=== PATIENT | male | born 1955 | race Caucasian/White ===

== ENCOUNTER 2016-11-19 12:16 | Observation (INO) | payer OTHER ==
--- NOTE | 2016-11-19 12:35 | ER Document Report ---
ED Medical Screen (RME) - General Chief Complaint: Chest Pain Stated Complaint: CHEST PAIN Time Seen by Provider: 11/19/16 12:32 Mode of Arrival: Wheelchair Information source: Patient, Relative TRAVEL OUTSIDE OF THE [place] IN LAST 30 DAYS: No - HPI Patient complains to provider of: CP Onset: Other - Pt with cardiac hx and stents times 4 with intermittent CP for the past 2 weeks with exacerbation this am. Has taken ASA today - Related Data Allergies/Adverse Reactions: codeine [Codeine] Allergy (Verified 11/19/16 12:25) morphine [Morphine] Allergy (Verified 11/19/16 12:25) Sulfa (Sulfonamide Antibiotics) Allergy (Verified 11/19/16 12:25) cholesterol medications Allergy (Uncoded 11/19/16 12:33) Past Medical History - Social History Frequency of alcohol use: None Drug Abuse: None - Past Medical History Cardiac Medical History: Reports: Hx Coronary Artery Disease, Hx Heart Attack - Mild heart attack 2008, 4 STENTS, Hx Hypertension Pulmonary Medical History: Reports: Hx Bronchitis Denies: Hx Asthma, Hx COPD, Hx Pneumonia Neurological Medical History: Denies: Hx Cerebrovascular Accident, Hx Seizures Endocrine Medical History: Reports: Hx Diabetes Mellitus Type 2 Renal/ Medical History: Denies: Hx Peritoneal Dialysis GI Medical History: Reports: Hx Gastroesophageal Reflux Disease - & BARRETTS ESPOPHAGITIS Musculoskeltal Medical History: Reports Hx Arthritis - All over Past Surgical History: Reports: Hx Cardiac Catheterization, Hx Cardiac Surgery - Immunizations Hx Diphtheria, Pertussis, Tetanus Vaccination: Yes Physical Exam - Vital signs Vitals: Temp Pulse Resp BP Pulse Ox 98.2 F 78 18 138/84 H 93 11/19/16 12:24 11/19/16 12:24 11/19/16 12:24 11/19/16 12:24 11/19/16 12:24 Course - Vital Signs Vital signs: Temp Pulse Resp BP Pulse Ox 98.2 F 78 18 138/84 H 93 11/19/16 12:24 11/19/16 12:24 11/19/16 12:24 11/19/16 12:24 11/19/16 12:24
[2016-11-19 13:32] LABS: ABSOLUTE EOSINOPHILS # (AUTO) 0.3 10^3/uL (0.0-0.6); ABSOLUTE LYMPHOCYTES (AUTO) 2.1 10^3/uL (0.5-4.7); ABSOLUTE MONOCYTES (AUTO) 0.9 10^3/uL (0.1-1.4); ABSOLUTE NEUT (AUTO) 6.6 10^3/uL (1.7-8.2); BASOPHILS % (AUTO) 0.4 % (0-2); EOSINOPHILS % (AUTO) 3.4 % (0-6); HEMATOCRIT 36.9 % (37.9-51.0); HEMOGLOBIN 12.7 g/dL (13.5-17.0); HGB HCT DIFFERENCE 1.2; LYMPHOCYTES % (AUTO) 20.7 % (13-45); MEAN CORPUSCULAR HEMOGLOBIN 29.6 pg (27.0-33.4); MEAN CORPUSCULAR HGB CONC 34.3 g/dL (32.0-36.0); MEAN CORPUSCULAR VOLUME 86 fl (80-97); MONOCYTES % (AUTO) 9.4 % (3-13); RED BLOOD COUNT 4.27 10^6/uL (4.35-5.55); RED CELL DISTRIBUTION WIDTH 13.4 % (11.5-14.0); SEGMENTED NEUTROPHILS % (AUTO) 66.1 % (42-78); WHITE BLOOD COUNT 9.9 10^3/uL (4.0-10.5)
[2016-11-19 13:47] LABS: ALANINE AMINOTRANSFERASE 34 U/L (21-72); ALBUMIN 4.1 g/dL (3.5-5.0); ALKALINE PHOSPHATASE 70 U/L (38-126); ANION GAP 7 (5-19); ASPARTATE AMINO TRANSFERASE 22 U/L (17-59); BILIRUBIN,DIRECT 0.4 mg/dL (0.0-0.4); BILIRUBIN,TOTAL 0.4 mg/dL (0.2-1.3); BLOOD UREA NITROGEN 23 mg/dL (7-20); CALCIUM 10.2 mg/dL (8.4-10.2); CARBON DIOXIDE 31 mmol/L (22-30); CHLORIDE 102 mmol/L (98-107); CREATINE KINASE 25 U/L (55-170); GLUCOSE 91 mg/dL (75-110); SODIUM 140.2 mmol/L (137-145); TOTAL PROTEIN 6.6 g/dL (6.3-8.2)
[2016-11-19 13:59] LABS: CREATINE KINASE MB 0.25 ng/mL (<4.55)
[2016-11-19 14:00] LABS: TROPONIN I < 0.012 ng/mL
--- NOTE | 2016-11-19 14:27 | RADIOLOGY REPORT (SQ) ---
EXAM DESCRIPTION: CHEST PA/LAT COMPLETED DATE/TIME: 11/19/2016 1:25 pm REASON FOR STUDY: CP COMPARISON: Chest films 12/19/2015, 12/05/2013 EXAM PARAMETERS: NUMBER OF VIEWS: two views TECHNIQUE: Digital Frontal and Lateral radiographic views of the chest acquired. RADIATION DOSE: NA LIMITATIONS: none FINDINGS: LUNGS AND PLEURA: Bandlike atelectasis or scarring left lung base. Lungs otherwise well i nflated and clear. No pleural effusion. No pneumothorax. MEDIASTINUM AND HILAR STRUCTURES: Calcified bilateral hilar lymph nodes. Fullness right paratracheal region stable compared to 2013 likely due to tortuous brachiocephalic vessels. HEART AND VASCULAR STRUCTURES: Stable mild cardiomegaly BONES: No acute findings. HARDWARE: None in the chest. OTHER: No other significant finding. IMPRESSION: Minimal left basilar atelectasis. TECHNICAL DOCUMENTATION: JOB ID: [id number] [employer]- All Rights Reserved
--- NOTE | 2016-11-19 14:40 | ER Document Report ---
ED Cardiac - General Chief Complaint: Chest Pain Stated Complaint: CHEST PAIN Time Seen by Provider: 11/19/16 12:32 Mode of Arrival: Wheelchair Notes: 61-year-old male with history of coronary artery disease with stent placement 2008 presents with chest discomfort. This is his third episode that he has had in the last 2 weeks with the last one being approximately 4 days ago until this morning. With this he is awakened in the nut sheller with sharp pain diffusely across his chest extending to the upper abdomen. It radiates to both arms. He had some apparent shortness of breath reported to staff but he tells me he was not short of breath. He has had no recent stress testing. He is diabetic and has obstructive sleep apnea but could not tolerate a CPAP. He denies other associated symptoms, nausea, syncope. Each episode has occurred in the late night/nut sheller. He has taken a baby aspirin today as he does daily but no other antiplatelet therapy. He has no current symptoms. TRAVEL OUTSIDE OF THE [place] IN LAST 30 DAYS: No - Related Data Allergies/Adverse Reactions: codeine [Codeine] Allergy (Verified 11/19/16 12:25) morphine [Morphine] Allergy (Verified 11/19/16 12:25) Sulfa (Sulfonamide Antibiotics) Allergy (Verified 11/19/16 12:25) cholesterol medications Allergy (Uncoded 11/19/16 12:33) Past Medical History - General Information source: Patient, Relative - Social History Smoking Status: Former Smoker Frequency of alcohol use: None Drug Abuse: None Family History: Reviewed & Not Pertinent - Past Medical History Cardiac Medical History: Reports: Hx Coronary Artery Disease, Hx Heart Attack - Mild heart attack 2008, 4 STENTS, Hx Hypertension Pulmonary Medical History: Reports: Hx Bronchitis Denies: Hx Asthma, Hx COPD, Hx Pneumonia Neurological Medical History: Denies: Hx Cerebrovascular Accident, Hx Seizures Endocrine Medical History: Reports: Hx Diabetes Mellitus Type 2 Renal/ Medical History: Denies: Hx Peritoneal Dialysis GI Medical History: Reports: Hx Gastroesophageal Reflux Disease - & BARRETTS ESPOPHAGITIS Musculoskeltal Medical History: Reports Hx Arthritis - All over Past Surgical History: Reports: Hx Cardiac Catheterization, Hx Cardiac Surgery - Immunizations Hx Diphtheria, Pertussis, Tetanus Vaccination: Yes Review of Systems - Review of Systems -: Yes All other systems reviewed and negative Physical Exam - Vital signs Vitals: Temp Pulse Resp BP Pulse Ox 98.2 F 78 18 138/84 H 93 11/19/16 12:24 11/19/16 12:24 11/19/16 12:24 11/19/16 12:24 11/19/16 12:24 - Notes Notes: Physical Exam: GENERAL: VS as per nursing doc. Well-appearing, well-nourished and in no acute distress. HEAD: Atraumatic, normocephalic. EYES: Pupils equal round and reactive to light, extraocular movements intact, sclera anicteric, no conjunctival injection or discharge. ENT: Nares patent, oropharynx clear without exudates. Moist mucous membranes. NECK: Normal range of motion, supple without lymphadenopathy. No JVD. No Carotid Bruits. LUNGS: Breath sounds clear to auscultation bilaterally and equal but diminished bilaterally. No wheezes rales or rhonchi. HEART: Normal S1S2. Regular rate and rhythm without murmurs. Equal peripheral pulses. ABDOMEN: Soft, non-tender EXTREMITIES: Normal range of motion. No calf tenderness. Negative Homans. No edema. NEUROLOGICAL: Cranial nerves grossly intact. Normal speech. Normal sensory and motor exams. No gross cerebellar abnormalities. PSYCH: Normal mood, normal affect. SKIN: Warm, dry, no cyanosis, no splinter hemorrhages. Cap refill < 2 sec. Course - Re-evaluation Re-evalutation: 11/19/16 14:53 I suspect the patient is desaturating with sleep apnea and having ischemic episodes in the late night/[place] morning hours. Dr. Ruvalcaba will admit the patient. - Vital Signs Vital signs: Temp Pulse Resp BP Pulse Ox 98.2 F 78 19 121/79 94 11/19/16 12:24 11/19/16 12:24 11/19/16 13:31 11/19/16 13:31 11/19/16 13:31 - Laboratory Result Diagrams: 11/19/16 13:15 11/19/16 13:15 Laboratory results interpreted by me: 11/19/16 11/19/16 13:15 13:15 RBC 4.27 L Hgb 12.7 L Hct 36.9 L Carbon Dioxide 31 H BUN 23 H Creatine Kinase 25 L - Diagnostic Test Radiology reviewed: Image reviewed, Reports reviewed - Mild left basilar atelectasis - EKG Interpretation by Me EKG shows normal: Sinus rhythm - Normal sinus rhythm, rate 83, no evidence of ischemia. Normal QRS. EKG similar and consistent with December 19, 2015 - Consults Dr. Ruvalcaba Time consulted: 14:54 - Tele/Obs admit Consulted provider: will come to ER Discharge - Discharge Clinical Impression: Chest pain Condition: Fair Disposition: ADMITTED OBSERVATION Admitting Provider: Hospitalist Unit Admitted: Telemetry
[2016-11-19] MEDS ORDERED: ASPIRIN 81 MG TABLET, CHEWABLE PO ONE ×2 (14:55→15:01)
[2016-11-19] MEDS ORDERED: ONDANSETRON HCL INJ/PF 4 MG/2 ML SDV IV PRN (15:01)
[2016-11-19] MEDS ORDERED: DIAZEPAM 5 MG TABLET PO PRN (15:01)
[2016-11-19] MEDS ORDERED: NITROGLYCERIN 0.4 MG/TAB 25 TAB/BOTTLE SL PRN (15:01)
[2016-11-19] MEDS ORDERED: NORMAL SALINE 1000 ML 1,000 ML IV PRN (15:06)
[2016-11-19] MEDS ORDERED: INSULIN LISPRO 100 UNIT/ML 3 ML VIAL SUBCUT PRN (16:15)
[2016-11-19] MEDS ORDERED: GLUCAGON,HUMAN RECOMB 1 MG INJ IM PRN (16:15)
[2016-11-19] MEDS ORDERED: DEXTROSE 50%-WATER 25 GM/50 ML DISP.SYRIN IV PRN ×2 (16:15)
[2016-11-19] MEDS ORDERED: DEXTROSE 40% GEL 15 GM TUBE PO PRN ×2 (16:15)
--- NOTE | 2016-11-19 16:30 | PDOC H&P ---
History of Present Illness Admission Date/PCP: 11/19/16 15:24 Dr. Mario Denture Contour Wire Specialist: Dr. GAN History of Present Illness: HOWIE BAZAN is a 61 year old male with a past medical history significant for diabetes mellitus type 2, obstructive sleep apnea noncompliant with CPAP, coronary artery disease, Ag's esophagus, and GERD who presents to the emergency department with 2 weeks of episodic chest pain. Patient reports that approximately 2 weeks ago he had an episode of chest pressure which woke him from sleep. And a second episode after that this past Thursday morning associated with chest discomfort. Patient reports having several episodes during the week while drinking coffee. He took nitroglycerin which did improve his pain somewhat, but was left with a dull ache. He reports that this morning he had several episodes while sleeping and reports that the heaviness radiated into his bilateral arms and jaw. He denies any associated shortness of breath, nausea, vomiting, metallic taste in his mouth, or diaphoresis. Patient does note an increased cough as of late which is nonproductive and denies hemoptysis. He denies any fevers or chills. He does note increased dyspnea on exertion, orthopnea, abdominal distention/swelling, and scrotal swelling. Patient has not had a stress test since 2013 at which time he had his last cath. He at that time he had 2 stents placed. Patient has already received 325 mg aspirin, and is currently chest pain-free. He is referred to the hospitalist service for evaluation of chest pain. Past Medical History Cardiac Medical History: Reports: Coronary Artery Disease, Myocardial Infarction - Mild heart attack 2008, 4 STENTS, Hypertension Pulmonary Medical History: Reports: Bronchitis, Sleep Apnea Denies: Asthma, Chronic Obstructive Pulmonary Disease (COPD), Pneumonia Neurological Medical History: Reports: Other - Neuropathy Denies: Seizures Endocrine Medical History: Reports: Diabetes Mellitus Type 2, Obesity GI Medical History: Reports: Gastroesophageal Reflux Disease - & BARRETTS ESPOPHAGITIS Musculoskeltal Medical History: Reports: Arthritis - All over Hematology: Denies: Anemia Infectious Medical History: Reports: Methicillin-Resistant Staph Aureus Past Surgical History Past Surgical History: Reports: Cardiac Catheterization, Cholecystectomy Social History Smoking Status: Former Smoker Frequency of Alcohol Use: None Hx Recreational Drug Use: No Hx Prescription Drug Abuse: No - Advance Directive Resuscitation Status: Full Code Surrogate healthcare decision maker:: Carlee Bazan, Family History Family History: CAD, Hypertension Parental Family History Reviewed: Yes Children Family History Reviewed: Yes Sibling(s) Family History Reviewed.: Yes Medication/Allergy Home Medications: Aspirin [Aspirin 81 mg Chewable Tablet] 81 mg PO DAILY 12/05/13 Donepezil HCl [Aricept Odt] 5 mg PO QHS 12/05/13 Esomeprazole Magnesium [Nexium] 40 mg PO BID 12/05/13 Metformin HCl [Glucophage 500 mg Tablet] 500 mg PO DAILY 12/05/13 Metoprolol Tartrate [Lopressor 50 mg Tablet] 25 mg PO DAILY 12/05/13 Nitroglycerin 0.4 mg SL PRN PRN 12/05/13 Telmisartan/Hydrochlorothiazid [Micardis HCT 80-25 mg Tablet] 1 each PO DAILY Allergies/Adverse Reactions: codeine [Codeine] Allergy (Verified 11/19/16 12:25) morphine [Morphine] Allergy (Verified 11/19/16 12:25) Sulfa (Sulfonamide Antibiotics) Allergy (Verified 11/19/16 12:25) cholesterol medications Allergy (Uncoded 11/19/16 12:33) Review of Systems Constitutional: PRESENT: fatigue, weight gain. ABSENT: chills, fever(s), headache(s), weight loss Eyes: ABSENT: visual disturbances Ears: ABSENT: hearing changes Cardiovascular: PRESENT: chest pain, dyspnea on exertion, edema, orthropnea. ABSENT: palpitations Respiratory: PRESENT: cough, dyspnea. ABSENT: hemoptysis, sputum Gastrointestinal: PRESENT: abdominal pain - Chronic, constipation, heartburn. ABSENT: diarrhea, hematemesis, hematochezia, melena, nausea, vomiting Genitourinary: ABSENT: difficulty urinating, dysuria, hematuria, nocturia Musculoskeletal: ABSENT: joint swelling Integumentary: ABSENT: diaphoresis, erythema, rash, wounds Neurological: ABSENT: abnormal gait, abnormal speech, confusion, dizziness, focal weakness, syncope Psychiatric: ABSENT: anxiety, depression, homidical ideation, suicidal ideation Endocrine: PRESENT: polydipsia. ABSENT: cold intolerance, heat intolerance, polyuria Hematologic/Lymphatic: ABSENT: easy bleeding, easy bruising Physical Exam Vital Signs: Temp Pulse Resp BP Pulse Ox 98.2 F 78 18 127/67 H 95 11/19/16 12:24 11/19/16 12:24 11/19/16 15:01 11/19/16 15:01 11/19/16 15:01 General appearance: PRESENT: no acute distress, morbidly obese, well-developed, well-nourished Head exam: PRESENT: atraumatic, normocephalic Eye exam: PRESENT: conjunctiva pink, EOMI, PERRLA. ABSENT: conjunctival injection, scleral icterus Ear exam: PRESENT: normal external ear exam Mouth exam: PRESENT: moist, neck supple, tongue midline Neck exam: ABSENT: JVD, lymphadenopathy, thyromegaly, tracheal deviation Respiratory exam: PRESENT: crackles - Bilateral bibasilar, prolonged expiratory phas, symmetrical, tachypnea, unlabored. ABSENT: accessory muscle use, chest wall tenderness, rales, retraction, rhonchi, wheezes Cardiovascular exam: PRESENT: RRR, +S1, +S2, systolic murmur. ABSENT: diastolic murmur, gallop, rubs, tachycardia Pulses: PRESENT: +1 pedal pulses bilateral Vascular exam: PRESENT: normal capillary refill GI/Abdominal exam: PRESENT: hypoactive bowel sounds, soft, tenderness - ruq. ABSENT: distended, firm, guarding, mass, Gonzalez's sign, organolmegaly, rebound, rigid Rectal exam: PRESENT: deferred Extremities exam: PRESENT: clubbing, pedal edema. ABSENT: calf tenderness Musculoskeletal exam: ABSENT: deformity Neurological exam: PRESENT: alert, awake, oriented to person, oriented to place , oriented to time, oriented to situation, CN II-XII grossly intact. ABSENT: motor sensory deficit Psychiatric exam: PRESENT: appropriate affect, normal mood. ABSENT: homicidal ideation, suicidal ideation Skin exam: PRESENT: dry, intact, warm. ABSENT: cyanosis, rash Results Laboratory Results: 08/23/12 11/19/16 11/19/16 15:15 13:15 13:15 WBC 9.9 Hgb 12.7 L Hct 36.9 L Plt Count 304 Seg Neutrophils % 66.1 D-Dimer 0.39 Sodium 140.2 Potassium 5.0 Carbon Dioxide 31 H BUN 23 H Creatinine 1.00 Glucose 91 Calcium 10.2 Total Bilirubin 0.4 Direct Bilirubin 0.4 AST 22 ALT 34 Alkaline Phosphatase 70 Creatine Kinase 25 L CK-MB (CK-2) Troponin I Total Protein 6.6 Albumin 4.1 11/19/16 13:15 WBC Hgb Hct Plt Count Seg Neutrophils % D-Dimer Sodium Potassium Carbon Dioxide BUN Creatinine Glucose Calcium Total Bilirubin Direct Bilirubin AST ALT Alkaline Phosphatase Creatine Kinase CK-MB (CK-2) 0.25 Troponin I < 0.012 Total Protein Albumin 11/23/10 02:38 Gram Stain - Final Axilla - Left Side Abscess Wound Culture - Final Mrsa (Meth Resis Staph Aureus) EKG Comments: NSR, LAFB, low voltage Impressions: Chest X-Ray 11/19/16 12:33 IMPRESSION: Minimal left basilar atelectasis. Status: Imported from PACS Assessment & Plan - Diagnosis (1) Chest pain Qualifiers: Chest pain type: precordial pain Qualified Code(s): R07.2 - Precordial pain Is this a current diagnosis for this admission?: Yes Plan: Place patient on observation and rule out for acute coronary syndrome. Will consider the addition of a long-acting nitrate, patient does give symptomatology consistent with congestive heart failure and will obtain an echocardiogram as well as a stress test. Continue patient's Micardis, metoprolol, aspirin. Patient has had a history of recent cardiac catheterization in 2013 which does reveal a significant amount of small vessel disease and patient's chest pain may actually be a manifestation of angina. Check FLP and cardiac enzymes. Patient reports an allergy to statins. (2) DM type 2 (diabetes mellitus, type 2) Qualifiers: Diabetes mellitus complication status: with neurologic complications Diabetes mellitus complication detail: with polyneuropathy Diabetes mellitus equipment operator intermodal yard insulin use: without equipment operator intermodal yard use Qualified Code(s): E11.42 - Type 2 diabetes mellitus with diabetic polyneuropathy Is this a current diagnosis for this admission?: Yes Plan: Check [id number] Carb controlled diet SSI (3) DESEAN (obstructive sleep apnea) Is this a current diagnosis for this admission?: Yes Plan: Encourage wt loss (4) Barretts esophagus Qualifiers: Ag's esophagus type: with dysplasia of unspecified degree Qualified Code(s): K22.719 - Ag's esophagus with dysplasia, unspecified; K22.71 - Ag's esophagus with dysplasia Is this a current diagnosis for this admission?: Yes Plan: Continue PPI twice daily (5) GERD (gastroesophageal reflux disease) Qualifiers: Esophagitis presence: esophagitis presence not specified Qualified Code(s) : K21.9 - Gastro-esophageal reflux disease without esophagitis Is this a current diagnosis for this admission?: Yes Plan: PPI twice daily (6) HTN (hypertension) Qualifiers: Hypertension type: essential hypertension Qualified Code(s): I10 - Essential (primary) hypertension Is this a current diagnosis for this admission?: Yes Plan: Continue Micardis, metoprolol (7) Morbid obesity due to excess calories Is this a current diagnosis for this admission?: Yes Plan: Dietary consult - Time Time Spent: 50 to 70 Minutes Medications reviewed and adjusted accordingly: Yes Anticipated discharge: Home Within: within 48 hours - Inpatient Certification Based on my medical assessment, after consideration of the patient's comorbidities, presenting symptoms, or acuity I expect that the services needed warrant INPATIENT care.: No I certify that my determination is in accordance with my understanding of Medicare's requirements for reasonable and necessary INPATIENT services [42 CFR 412.3e].: No Post Hospital Care: D/C Rental Salesperson Documentation
[2016-11-19] MEDS: LANSOPRAZOLE 30 MG TAB.RAP.DR PO SCH (16:56)
[2016-11-19] MEDS ORDERED: ACETAMINOPHEN 325 MG TABLET PO PRN (17:05)
[2016-11-19] MEDS ORDERED: FUROSEMIDE INJ/PF 20 MG/2 ML SDV IV ONE (18:00)
[2016-11-19] MEDS ORDERED: IPRATROPIUM/ALBUTEROL 0.5-2.5 MG/3 ML AMPUL NEB ONE (18:00)
[2016-11-19] MEDS ORDERED: MAG HYDROX/AL HYDROX/SIMETH SUSP 30 ML UDCUP PO ONE (18:00)
[2016-11-19] MEDS ORDERED: LIDOCAINE 2% VISCOUS SOLN 20 ML UDCUP PO ONE (18:00)
[2016-11-19] MEDS ORDERED: GABAPENTIN 300 MG CAPSULE PO SCH (18:00)
[2016-11-19] MEDS ORDERED: NITROGLYCERIN 2% OINTMENT 1 GM PACKET TP ONE (18:00)
[2016-11-19] MEDS ORDERED: METOCLOPRAMIDE HCL ORAL SOLN 10 MG/10 ML UDCUP PO ONE (18:00)
[2016-11-19] MEDS: METFORMIN HCL 500 MG TABLET PO SCH (18:11)
[2016-11-19] MEDS: IPRATROPIUM/ALBUTEROL 0.5-2.5 MG/3 ML AMPUL NEB SCH (20:23)
[2016-11-19] MEDS ORDERED: AMITRIPTYLINE HCL 75 MG TABLET PO SCH (22:00)
[2016-11-19] MEDS: GABAPENTIN 300 MG CAPSULE PO SCH (22:23)
[2016-11-19] MEDS: LOSARTAN POTASSIUM 25 MG TABLET PO SCH (22:28)
[2016-11-19] MEDS: METOPROLOL SUCCINATE 50 MG TAB.SR.24H PO SCH ×2 (22:28→22:44)
--- NOTE | 2016-11-19 22:53 | EKG REPORT ---
SEVERITY:- NORMAL ECG - SINUS RHYTHM : Confirmed by: Сергей Mendosa 19-Nov-2016 22:51:59
[2016-11-20 03:36] LABS: CHOLESTEROL 201.34 mg/dL (0-200); CREATINE KINASE 26 U/L (55-170); Direct HDL 35 mg/dL (>40); TRIGLYCERIDES 218 mg/dL (<150)
[2016-11-20 03:46] LABS: VLDL CHOLESTEROL 43.6 mg/dL (10-31)
[2016-11-20 03:47] LABS: DIRECT LDL 131 mg/dL (<100)
[2016-11-20 04:04] LABS: CREATINE KINASE MB < 0.22 ng/mL (<4.55); TROPONIN I < 0.012 ng/mL
[2016-11-20] MEDS: GABAPENTIN 300 MG CAPSULE PO SCH ×2 (05:08→13:03)
[2016-11-20] MEDS: LANSOPRAZOLE 30 MG TAB.RAP.DR PO SCH ×2 (05:08→16:05)
[2016-11-20] MEDS: IPRATROPIUM/ALBUTEROL 0.5-2.5 MG/3 ML AMPUL NEB SCH ×2 (08:40→13:55)
[2016-11-20] MEDS ORDERED: ASPIRIN 325 MG TABLET, ENT COATED PO SCH (10:00)
[2016-11-20] MEDS: METFORMIN HCL 500 MG TABLET PO SCH (12:41)
[2016-11-20] MEDS: LOSARTAN POTASSIUM 25 MG TABLET PO SCH (12:46)
[2016-11-20] MEDS ORDERED: REGADENOSON INJ 0.4 MG/5 ML DISP.SYRIN IV ONE (12:53)
[2016-11-20] MEDS ORDERED: AMINOPHYLLINE INJ/PF 250 MG/10 ML SDV IV ONE (12:53)
[2016-11-20] MEDS ORDERED: METOPROLOL SUCCINATE 50 MG TAB.SR.24H PO ONE (13:00)
--- NOTE | 2016-11-20 13:16 | RADIOLOGY REPORT (SQ) ---
EXAM DESCRIPTION: [facility] SPECT-CARDIOLITE COMPLETED DATE/TIME: 11/20/2016 12:40 pm REASON FOR STUDY: CAD, Chest Pressure COMPARISON: Echocardiogram 11/20/2016 Cardiolite study 12/06/2013 RADIONUCLIDE AND DOSE: RADIONUCLIDE REST: 14.16 mCi technetium 99m sestamibi. RADIONUCLIDE STRESS: 42.6 mCi technetium 99m sestamibi. STRESS AGENT: 0.4 mg Lexiscan. The route of agent administration: Intravenous TECHNIQUE: Following administration of the radionuclide, gated ECT images of the heart are obtained in three projections. Images obtained at rest and with stress. Left ventricular functional analysis performed. LIMITATIONS: None. FINDINGS: LEFT VENTRICULAR FUNCTION: EJECTION FRACTION: 54%. END-DIASTOLIC VOLUME: 71 mL. END-SYSTOLIC VOLUME: 33 mL. TID RATIO: 1.0. WALL MOTION: Mildly depressed thickening of the inferior wall left ventricular myocardium. PERFUSION IMAGES: Normal myocardial perfusion at stress and rest. No areas of ischemia. OTHER: No other significant finding. IMPRESSION: No Cardiolite defects on stress as compared to rest. Left ventricular ejection fraction 54%. Stable mild decreased wall thickening, inferior wall COMMENT: RISK ASSESSMENT: Low risk. LOW RISK FINDINGS: Normal or small perfusion defect rest or stress. INTERMEDIATE RISK FINDINGS: Mild/moderate resting LV dysfunction LVEF=35-49%. Stress-induced moderate perfusion defect without LV dilatation. HIGH RISK FINDINGS: Severe resting LV dysfunction LVEF<35%. Stress-induced large perfusion defect. Stress-induced moderate sized multiple perfusion defects. Large fixed perfusion defect with LV dilatation. Stress-induced moderate perfusion defect with LV dilatation. TECHNICAL DOCUMENTATION: JOB ID: [id number] [employer]- All Rights Reserved
[2016-11-20 16:09] VITALS: BP 127/78
--- NOTE | 2016-11-20 20:15 | PDOC DISCHARGE SUMMARY ---
General - Admit/Disc Date/PCP Admission Date/Primary Care Provider: 11/19/16 15:24 Discharge Date: 11/20/16 - Discharge Diagnosis (1) Chest pain Is this a current diagnosis for this admission?: Yes (2) DM type 2 (diabetes mellitus, type 2) Is this a current diagnosis for this admission?: Yes (3) DESEAN (obstructive sleep apnea) Is this a current diagnosis for this admission?: Yes (4) Barretts esophagus Is this a current diagnosis for this admission?: Yes (5) GERD (gastroesophageal reflux disease) Is this a current diagnosis for this admission?: Yes (6) HTN (hypertension) Is this a current diagnosis for this admission?: Yes (7) Morbid obesity due to excess calories Is this a current diagnosis for this admission?: Yes - Additional Information Resuscitation Status: Full Code Discharge Diet: Cardiac, Diabetic Discharge Activity: Activity As Tolerated Home Medications: Amitriptyline HCl [Elavil 75 mg Tablet] 75 mg PO QHS 11/19/16 Aspirin [Aspirin 81 mg Chewable Tablet] 81 mg PO DAILY 11/19/16 Cyanocobalamin (Vitamin B-12) [Vitamin B-12 1000 mcg Tablet] 1,000 mcg PO ASDIR PRN 11/19/16 Gabapentin [Neurontin] 600 mg PO Q8 11/19/16 Metformin HCl [Glucophage 500 mg Tablet] 500 mg PO DAILY 11/19/16 Metoprolol Tartrate [Lopressor 25 mg Tablet] 25 mg PO DAILY 11/19/16 Nitroglycerin [Nitrostat] 0.4 mg SL ASDIR PRN 11/19/16 Telmisartan/Hydrochlorothiazid [Telmisartan-Hctz 80-25 mg Tab] 1 tab PO DAILY Sucralfate [Carafate] 1 gm PO TID #180 ml 11/20/16 History of Present Illness History of Present Illness: HOWIE BAZAN is a 61 year old male with a past medical history significant for diabetes mellitus type 2, obstructive sleep apnea noncompliant with CPAP, coronary artery disease, Ag's esophagus, and GERD who presents to the emergency department with 2 weeks of episodic chest pain. Patient reports that approximately 2 weeks ago he had an episode of chest pressure which woke him from sleep. And a second episode after that this past Thursday morning associated with chest discomfort. Patient reports having several episodes during the week while drinking coffee. He took nitroglycerin which did improve his pain somewhat, but was left with a dull ache. He reports that this morning he had several episodes while sleeping and reports that the heaviness radiated into his bilateral arms and jaw. He denies any associated shortness of breath, nausea, vomiting, metallic taste in his mouth, or diaphoresis. Patient does note an increased cough as of late which is nonproductive and denies hemoptysis. He denies any fevers or chills. He does note increased dyspnea on exertion, orthopnea, abdominal distention/swelling, and scrotal swelling. Patient has not had a stress test since 2013 at which time he had his last cath. He at that time he had 2 stents placed. Patient has already received 325 mg aspirin, and is currently chest pain-free. He is referred to the hospitalist service for evaluation of chest pain. Hospital Course Hospital Course: Patient ruled out for acute coronary syndrome with 3 sets of enzymes. Patient' s chest pain was greatly improved with GI cocktail. Discussion of repeat endoscopy as an outpatient was had with patient. This was expressed to him is extremely important given his history of Ag's esophagitis. Patient also strongly encouraged to eat appropriately and get a moderate amount of exercise. He is also to follow-up with his coal hiker Dr. GAN the results of his echo. Physical Exam Vital Signs: Temp Pulse Resp BP Pulse Ox 97.5 F 105 H 18 127/78 H 93 11/20/16 16:08 11/20/16 16:08 11/20/16 16:08 11/20/16 16:08 11/20/16 16:08 Intake & Output 11/19/16 11/20/16 11/21/16 06:59 06:59 06:59 Intake Total 0 Output Total 1475 Balance -1475 Weight 99.9 kg Exam: General: obese, Awake alert and orientedx3, no acute respiratory distress HEENT: AT/NC, PERRL, EOMI, oropharynx is moist, pink, no scleral icterus, no conjunctival injection Neck: No JVD, trachea midline Chest: Clear to auscultation bilaterally, no wheezes rhonchi or rales CV: Regular rate and rhythm, normal S1 and S2, no murmur, rub, or gallop Abdomen: Soft, nontender to palpation, nondistended, active bowel sounds; no rebound, rigidity, or guarding Extremities: No cyanosis, clubbing or edema Neuro: Cranial nerves II through XII are grossly intact without focal deficits; awake alert and oriented x3 Psych: Normal mood and affect Results Laboratory Results: 11/20/16 03:15 Triglycerides 218 H Cholesterol 201.34 H LDL Cholesterol Direct 131 H VLDL Cholesterol 43.6 H HDL Cholesterol 35 L 11/19/16 11/19/16 11/19/16 15:52 15:52 21:03 Creatine Kinase CK-MB (CK-2) Troponin I < 0.012 < 0.012 NT-Pro-B Natriuret Pep 47 11/20/16 11/20/16 03:15 03:15 Creatine Kinase 26 L CK-MB (CK-2) < 0.22 Troponin I < 0.012 NT-Pro-B Natriuret Pep Impressions: Chest X-Ray 11/19/16 12:33 IMPRESSION: Minimal left basilar atelectasis. Cardiolite Stress Test 11/19/16 15:58 IMPRESSION: No Cardiolite defects on stress as compared to rest. Left ventricular ejection fraction 54%. Stable mild decreased wall thickening, inferior wall Qualifiers PATEINT BEING DISCHARGED WITH ANY OF THE FOLLOWING DIAGNOSIS?: No Plan Time Spent: Less than 30 Minutes
== END 2016-11-20 16:51 | disposition home or self-care (01) ==
LOC: ER 12:16 → EH 15:24 → 4W 16:47
PROVIDERS: ADMIT Internal Medicine; ATTEND Internal Medicine
PROC: 3E0F7GC Introduction of Other Therapeutic Substance into Respiratory Tract, Via Natural or Artificial Opening (ICD-10-PCS; principal; 2016-11-19)
DX: R07.89 Other chest pain (principal); E11.42 Type 2 diabetes mellitus with diabetic polyneuropathy; G47.33 Obstructive sleep apnea (adult) (pediatric); K22.719 Barrett's esophagus with dysplasia, unspecified; K21.9 Gastro-esophageal reflux disease without esophagitis; I10 Essential (primary) hypertension; E66.01 Morbid (severe) obesity due to excess calories; I25.10 Atherosclerotic heart disease of native coronary artery without angina pectoris; R05 Cough; R06.09 Other forms of dyspnea; R06.01 Orthopnea; R14.0 Abdominal distension (gaseous); N50.89 Other specified disorders of the male genital organs; K59.00 Constipation, unspecified; R60.0 Localized edema; I25.2 Old myocardial infarction; G89.29 Other chronic pain; R10.9 Unspecified abdominal pain; Z79.82 Long term (current) use of aspirin; Z95.5 Presence of coronary angioplasty implant and graft; Z91.19 Patient's noncompliance with other medical treatment and regimen; Z79.899 Other long term (current) drug therapy; Z87.891 Personal history of nicotine dependence; Z90.49 Acquired absence of other specified parts of digestive tract; Z82.49 Family history of ischemic heart disease and other diseases of the circulatory system; Z79.84 Long term (current) use of oral hypoglycemic drugs; Z91.09 Other allergy status, other than to drugs and biological substances; Z68.35 Body mass index [BMI] 35.0-35.9, adult
CPT/HCPCS: 93005; 99285; 36415 ×2; 82553 ×2; 82962 ×2; 82550 ×2; 84443; 85025; 80053; 84484 ×2; 83036; 80061; 83880; 93306; 93017; 71020; 78452; 93010; 94640 ×3; G0378 ×2; G0379; A9500; J2785; J3490 ×4; J1940; J0280; J7620 ×2; Q9969

== ENCOUNTER 2016-12-04 09:43 | Day surgery (SDC) | payer OTHER ==
[2016-12-04 10:42] LABS: POTASSIUM 4.9 mmol/L (3.6-5.0)
[2016-12-04] MEDS ORDERED: PROPOFOL INJ 200 MG/20 ML VIAL IV ONE (11:06)
[2016-12-04] MEDS ORDERED: ONDANSETRON HCL INJ/PF 4 MG/2 ML SDV IV PRN (12:33)
[2016-12-04] MEDS ORDERED: DIPHENHYDRAMINE HCL 50 MG/ML VIAL IV PRN (12:33)
[2016-12-04] MEDS ORDERED: FENTANYL CITRATE INJ/PF 100 MCG/2 ML AMPUL IV PRN ×3 (12:33)
[2016-12-04] MEDS ORDERED: PROMETHAZINE HCL INJ 25 MG/1 ML VIAL IV PRN (12:33)
--- NOTE | 2016-12-04 12:54 | Operative Report ---
Operative Report DATE OF SURGERY: 12/04/16 Operative Report: The risks, benefits and alternatives of the procedure including risks of bleeding, perforation requiring surgery are explained to the patient in detail and informed consent is obtained. Patient was taken back to the operating room placed in the left, lateral decubital position. Timeout was called. Propofol medications administered. A rectal examination was done which did not reveal any masses, tears or fissures. An Olympus video scope was inserted into the patient's rectum. The scope was then carefully advanced all the way to the cecum. The cecum was identified by the usual anatomical landmarks of the ileocecal valve as well as the appendiceal office. Photodocumentation was obtained. Prep was good. Scope was then sequentially pulled back via the various segments of the colon including the ascending colon, hepatic flexure, transverse colon, splenic flexure, descending colon finding to the rectosigmoid portions of the colon. Retroflexion maneuvers performed. The risks benefits and alternatives of the procedure explained to the patient in detail and informed consent is obtained.A GIF Olympus video scope was inserted into the patient's mouth and hypopharynx, the esophagus is identified intubated and insufflated, the scope was then advanced through the esophagus stomach and duodenum, retroflexion maneuver is done, the esophagus stomach and first and second portions of the duodenum examined PREOPERATIVE DIAGNOSIS: Prior blood per rectum. Colorectal cancer screening. Noncardiac chest pain POSTOPERATIVE DIAGNOSIS: Possible Ag's esophagus. Esophageal polyp was removed via biopsy forceps. Gastritis status post biopsy. Descending colon polyp status post biopsy. Diverticulosis. Internal hemorrhoids OPERATION: Colonoscopy with biopsy. Colonoscopy with EGD SURGEON: WILLIAM NICHOLS ANESTHESIA: LMAC TISSUE REMOVED OR ALTERED: As noted above. COMPLICATIONS: None. ESTIMATED BLOOD LOSS: None. INTRAOPERATIVE FINDINGS: As described above. PROCEDURE: Patient tolerated the procedure well. No immediate postprocedure complications are noted. Patient discharged in good condition. Discharge date 12/03/2016. Discharge diet: Regular. Discharge activity: Regular. 2-3 week follow-up to discuss findings. Patient is instructed to call the office or proceed to the emergency room should there be any further problems or questions. We will wait on biopsies. 5 year surveillance colonoscopy.
[2016-12-04] MEDS ORDERED: DEXTROSE 5%-1/2 NORMAL SALINE 1,000 ML IV PRN (13:05)
[2016-12-04] MEDS ORDERED: SIMETHICONE 80 MG TAB.CHEW PO PRN (13:06)
[2016-12-04] MEDS ORDERED: ACETAMINOPHEN 325 MG TABLET PO PRN (13:06)
[2016-12-04] MEDS ORDERED: PROMETHAZINE HCL INJ 25 MG/1 ML VIAL INJ PRN (13:07)
[2016-12-04 14:41] VITALS: BP 113/66
== END 2016-12-04 14:33 | disposition home or self-care (01) ==
LOC: OROUT 09:43
PROVIDERS: ATTEND Internal Medicine Gastroenterology
PROC: 0DBM8ZX Excision of Descending Colon, Via Natural or Artificial Opening Endoscopic, Diagnostic (ICD-10-PCS; 2016-12-04)
PROC: 0DB68ZX Excision of Stomach, Via Natural or Artificial Opening Endoscopic, Diagnostic (ICD-10-PCS; principal; 2016-12-04 12:00)
PROC: 0DB58ZX Excision of Esophagus, Via Natural or Artificial Opening Endoscopic, Diagnostic (ICD-10-PCS; 2016-12-04 12:00)
DX: Z86.010 Personal history of colon polyps (principal); D12.4 Benign neoplasm of descending colon; K57.30 Diverticulosis of large intestine without perforation or abscess without bleeding; K64.8 Other hemorrhoids; K29.50 Unspecified chronic gastritis without bleeding; K21.9 Gastro-esophageal reflux disease without esophagitis; E78.2 Mixed hyperlipidemia; E11.9 Type 2 diabetes mellitus without complications; I25.10 Atherosclerotic heart disease of native coronary artery without angina pectoris; M06.9 Rheumatoid arthritis, unspecified; E78.5 Hyperlipidemia, unspecified; I10 Essential (primary) hypertension; Z79.82 Long term (current) use of aspirin; Z79.84 Long term (current) use of oral hypoglycemic drugs; Z79.899 Other long term (current) drug therapy; Z88.5 Allergy status to narcotic agent; Z88.2 Allergy status to sulfonamides
CPT/HCPCS: 43239; 45380; 36415; 82947; 84132; 88342 ×2; 88305 ×2; J2704; 740

== ENCOUNTER → 2017-02-27 | Outpatient (CLI) | payer OTHER ==
[2017-02-27 11:05] LABS: ALANINE AMINOTRANSFERASE 33 U/L (21-72); ALBUMIN 4.4 g/dL (3.5-5.0); ALKALINE PHOSPHATASE 66 U/L (38-126); ANION GAP 11 (5-19); ASPARTATE AMINO TRANSFERASE 24 U/L (17-59); BILIRUBIN,DIRECT 0.2 mg/dL (0.0-0.4); BILIRUBIN,TOTAL 0.3 mg/dL (0.2-1.3); BLOOD UREA NITROGEN 15 mg/dL (7-20); CALCIUM 10.6 mg/dL (8.4-10.2); CARBON DIOXIDE 33 mmol/L (22-30); CHLORIDE 100 mmol/L (98-107); CHOLESTEROL 235.63 mg/dL (0-200); CREATININE RESULT 1.02 mg/dL (0.52-1.25); Direct HDL 45 mg/dL (>40); GLUCOSE 87 mg/dL (75-110); POTASSIUM 4.7 mmol/L (3.6-5.0); SODIUM 144.3 mmol/L (137-145); TRIGLYCERIDES 206 mg/dL (<150)
[2017-02-27 11:16] LABS: DIRECT LDL 156 mg/dL (<100)
[2017-02-27 11:23] LABS: VLDL CHOLESTEROL 41.2 mg/dL (10-31)
== END ==
LOC: OD 10:02
PROVIDERS: ATTEND Internal Medicine Cardiovascular Disease
DX: I25.118 Atherosclerotic heart disease of native coronary artery with other forms of angina pectoris (principal)
CPT/HCPCS: 36415; 80048; 80061; 80076

== ENCOUNTER 2017-10-21 08:35 | Day surgery (SDC) | payer OTHER ==
[~2017-10-21 08:35] MED LIST: CHONDR SU A NA/HYALUR INTRAOC KIT (SURGICARE) ONE; EPINEPHRINE INJ/PF 1 MG/1 ML AMPULE ONE; KETOROLAC TROMETHAMINE 0.45% 4 DROP/0.4 ML DROPERETTE OS PRN
[2017-10-21] MEDS: TROPICAMIDE 1% OPH SOLN 3 ML OS PRN ×3 (09:00→09:32)
[2017-10-21] MEDS: CYCLOPENTOLATE 0.2%/PHENYLEPHRINE 1% OPH SOLN 2 ML OS PRN ×3 (09:00→09:32)
[2017-10-21] MEDS: BESIFLOXACIN HCL 0.6% OPH SUSP 5 ML BOTTLE OS PRN ×5 (09:01→10:03)
[2017-10-21] MEDS: TETRACAINE HCL 0.5% OPH SOLN 0.6 ML DROPERETTE OS PRN ×3 (09:02→09:35)
[2017-10-21] MEDS ORDERED: MIDAZOLAM 2 MG/2 ML INJ ONE (09:22)
[2017-10-21] MEDS ORDERED: FENTANYL CITRATE INJ/PF 100 MCG/2 ML AMPUL ONE (09:22)
[2017-10-21] MEDS: LIDOCAINE 1% INJ-PF (10 MG/ML) 30 ML SDV ONE ×2 (09:42→09:45)
[2017-10-21] MEDS: TOBRAMYCIN SULFATE/DEXAMETH OPH OINTMENT 3.5 GM ONE ×3 (09:45→10:03)
== END 2017-10-21 10:44 | disposition home or self-care (01) ==
LOC: SC 08:35
PROVIDERS: ATTEND Ophthalmology
DX: H25.12 Age-related nuclear cataract, left eye (principal); M19.90 Unspecified osteoarthritis, unspecified site; I25.10 Atherosclerotic heart disease of native coronary artery without angina pectoris; E11.9 Type 2 diabetes mellitus without complications; I10 Essential (primary) hypertension; K21.9 Gastro-esophageal reflux disease without esophagitis; G57.93 Unspecified mononeuropathy of bilateral lower limbs; G47.30 Sleep apnea, unspecified; I25.2 Old myocardial infarction; Z79.84 Long term (current) use of oral hypoglycemic drugs; Z79.899 Other long term (current) drug therapy; Z88.2 Allergy status to sulfonamides; Z88.5 Allergy status to narcotic agent; Z79.82 Long term (current) use of aspirin
CPT/HCPCS: 66984; 82962; V2632; J2250; J3490 ×3; J0171; J3010; 142

== ENCOUNTER 2017-11-04 07:12 | Day surgery (SDC) | payer OTHER ==
[~2017-11-04 07:12] MED LIST changes: -CHONDR SU A NA/HYALUR INTRAOC KIT (SURGICARE) ONE; -EPINEPHRINE INJ/PF 1 MG/1 ML AMPULE ONE; +KETOROLAC TROMETHAMINE 0.45% 4 DROP/0.4 ML DROPERETTE OD PRN; -KETOROLAC TROMETHAMINE 0.45% 4 DROP/0.4 ML DROPERETTE OS PRN
[2017-11-04] MEDS ORDERED: EPINEPHRINE INJ/PF 1 MG/1 ML AMPULE ONE (07:16)
[2017-11-04] MEDS ORDERED: CHONDR SU A NA/HYALUR INTRAOC KIT (SURGICARE) ONE (07:17)
[2017-11-04] MEDS ORDERED: LIDOCAINE 1% INJ-PF (10 MG/ML) 30 ML SDV ONE (07:17)
[2017-11-04] MEDS: CYCLOPENTOLATE 0.2%/PHENYLEPHRINE 1% OPH SOLN 2 ML OD PRN ×3 (07:50→08:10)
[2017-11-04] MEDS: BESIFLOXACIN HCL 0.6% OPH SUSP 5 ML BOTTLE OD PRN ×4 (07:50→08:42)
[2017-11-04] MEDS: TETRACAINE HCL 0.5% OPH SOLN 0.6 ML DROPERETTE OD PRN ×3 (07:50→08:16)
[2017-11-04] MEDS: TROPICAMIDE 1% OPH SOLN 3 ML OD PRN ×3 (07:50→08:10)
[2017-11-04] MEDS ORDERED: MIDAZOLAM 2 MG/2 ML INJ ONE (08:04)
[2017-11-04] MEDS ORDERED: FENTANYL CITRATE INJ/PF 100 MCG/2 ML AMPUL ONE (08:05)
[2017-11-04] MEDS: TOBRAMYCIN SULFATE/DEXAMETH OPH OINTMENT 3.5 GM ONE ×2 (08:42)
== END 2017-11-04 09:10 | disposition home or self-care (01) ==
LOC: SC 07:12
PROVIDERS: ATTEND Ophthalmology
DX: H25.11 Age-related nuclear cataract, right eye (principal); Z98.42 Cataract extraction status, left eye; M19.90 Unspecified osteoarthritis, unspecified site; I25.10 Atherosclerotic heart disease of native coronary artery without angina pectoris; E11.9 Type 2 diabetes mellitus without complications; I10 Essential (primary) hypertension; K21.9 Gastro-esophageal reflux disease without esophagitis; F17.210 Nicotine dependence, cigarettes, uncomplicated; G47.33 Obstructive sleep apnea (adult) (pediatric); Z79.82 Long term (current) use of aspirin; Z79.84 Long term (current) use of oral hypoglycemic drugs; Z87.891 Personal history of nicotine dependence; Z88.5 Allergy status to narcotic agent; Z88.2 Allergy status to sulfonamides; Z86.73 Personal history of transient ischemic attack (TIA), and cerebral infarction without residual deficits
CPT/HCPCS: 66984; 82962; V2632; J2250; J3490 ×3; J0171; J3010; 142

== ENCOUNTER 2018-04-26 10:56 | Day surgery (SDC) | payer OTHER ==
[~2018-04-26 10:56] MED LIST changes: -KETOROLAC TROMETHAMINE 0.45% 4 DROP/0.4 ML DROPERETTE OD PRN; +PROPOFOL INJ 200 MG/20 ML VIAL IV ONE
--- NOTE | 2018-04-26 12:06 | Operative Report ---
Operative Report DATE OF SURGERY: 04/26/18 Operative Report: The risks benefits and alternatives of the procedure explained to the patient in detail and informed consent is obtained.A GIF Olympus video scope was inserted into the patient's mouth and hypopharynx, the esophagus is identified intubated and insufflated ,the scope was then advanced through the esophagus stomach and duodenum ,retroflexion maneuver is done ,the esophagus stomach and first and second portions of the duodenum examined. PREOPERATIVE DIAGNOSIS: Gastroesophageal reflux disease. Noncardiac chest pain POSTOPERATIVE DIAGNOSIS: Gastritis status post biopsy rule out Helicobacter pylori. Known history of Ag's esophagus and there is recurrence of that. Status post radiofrequency ablation OPERATION: EGD with ablation. EGD with biopsy SURGEON: WILLIAM NICHOLS ANESTHESIA: LMAC TISSUE REMOVED OR ALTERED: As noted above. COMPLICATIONS: None. ESTIMATED BLOOD LOSS: None. INTRAOPERATIVE FINDINGS: As noted above. PROCEDURE: Patient tolerated the procedure well. No immediate postprocedure complications are noted. Patient discharged in good condition. Discharge date 04/26/2018. Discharge diet: Regular. Discharge activity: Regular. 2-3-week follow-up to discuss findings. Patient is instructed call the office or proceed to the emergency room should there be any further proximal questions. I will wait on the pathology.
[2018-04-26 12:58] VITALS: BP 145/69
== END 2018-04-26 12:45 | disposition home or self-care (01) ==
LOC: END 10:56
PROVIDERS: ATTEND Internal Medicine Gastroenterology
DX: K22.719 Barrett's esophagus with dysplasia, unspecified (principal); K29.50 Unspecified chronic gastritis without bleeding; M06.9 Rheumatoid arthritis, unspecified; E11.9 Type 2 diabetes mellitus without complications; I10 Essential (primary) hypertension; E78.2 Mixed hyperlipidemia; I25.10 Atherosclerotic heart disease of native coronary artery without angina pectoris; Z79.82 Long term (current) use of aspirin; Z79.899 Other long term (current) drug therapy; Z79.84 Long term (current) use of oral hypoglycemic drugs; Z88.5 Allergy status to narcotic agent; Z88.2 Allergy status to sulfonamides
CPT/HCPCS: 43270; 43239; 82962; 88305 ×2; J2704

== ENCOUNTER → 2018-09-02 | Outpatient (CLI) | payer OTHER ==
[2018-09-02 11:08] LABS: HEMATOCRIT 37.4 % (37.9-51.0); HEMOGLOBIN 12.6 g/dL (13.5-17.0); MEAN CORPUSCULAR HGB CONC 33.8 g/dL (32.0-36.0); MEAN CORPUSCULAR VOLUME 86 fl (80-97); PLATELET COUNT 353 10^3/uL (150-450); RED BLOOD COUNT 4.36 10^6/uL (4.35-5.55); RED CELL DISTRIBUTION WIDTH 14.1 % (11.5-14.0); WHITE BLOOD COUNT 7.1 10^3/uL (4.0-10.5)
[2018-09-02 11:28] LABS: ALANINE AMINOTRANSFERASE 35 U/L (21-72); ALBUMIN 4.1 g/dL (3.5-5.0); ALKALINE PHOSPHATASE 73 U/L (38-126); ANION GAP 8 (5-19); ASPARTATE AMINO TRANSFERASE 26 U/L (17-59); BILIRUBIN,DIRECT 0.3 mg/dL (0.0-0.4); BILIRUBIN,TOTAL 0.4 mg/dL (0.2-1.3); BLOOD UREA NITROGEN 18 mg/dL (7-20); CARBON DIOXIDE 31 mmol/L (22-30); CHLORIDE 101 mmol/L (98-107); GLUCOSE 88 mg/dL (75-110); POTASSIUM 5.4 mmol/L (3.6-5.0); TOTAL PROTEIN 6.6 g/dL (6.3-8.2); TRIGLYCERIDES 257 mg/dL (<150)
[2018-09-02 11:39] LABS: DIRECT LDL 105 mg/dL (<100)
[2018-09-02 11:46] LABS: VLDL CHOLESTEROL 51.4 mg/dL (10-31)
== END ==
LOC: OD 10:02
PROVIDERS: ATTEND Physician Assistant
DX: I10 Essential (primary) hypertension (principal); R06.00 Dyspnea, unspecified; Z79.899 Other long term (current) drug therapy; E78.2 Mixed hyperlipidemia
CPT/HCPCS: 36415; 80048; 80061; 80076; 83735; 83880; 84443; 85027

== ENCOUNTER → 2018-09-07 | Outpatient (CLI) | payer OTHER ==
--- NOTE | 2018-09-07 15:17 | RADIOLOGY REPORT (SQ) ---
EXAM DESCRIPTION: CHEST PA/LATERAL COMPLETED DATE/TIME: 09/07/2018 3:03 pm REASON FOR STUDY: DYSPNEA COMPARISON: 11/19/2016 EXAM PARAMETERS: NUMBER OF VIEWS: two views TECHNIQUE: Digital Frontal and Lateral radiographic views of the chest acquired. RADIATION DOSE: NA LIMITATIONS: none FINDINGS: LUNGS AND PLEURA: Stable minimal left base atelectasis or scar. No acute pulmonary conso lidation. No pneumothorax or pleural effusion. MEDIASTINUM AND HILAR STRUCTURES: No masses or contour abnormalities. HEART AND VASCULAR STRUCTURES: Heart normal size. No evidence for failure. BONES: No acute findings. HARDWARE: None in the chest. OTHER: Hardware anterior fusion lower cervical spine, since the previous examination. IMPRESSION: 1. Stable minimal left base atelectasis or scar. No acute pulmonary findings. TECHNICAL DOCUMENTATION: JOB ID: [id number] [employer]- All Rights Reserved Reading location - IP/workstation name: [email or web address]
== END ==
LOC: OD 14:54
PROVIDERS: ATTEND Physician Assistant
DX: R06.00 Dyspnea, unspecified (principal); R79.9 Abnormal finding of blood chemistry, unspecified
CPT/HCPCS: 71046

== ENCOUNTER → 2018-09-23 | Outpatient (CLI) | payer OTHER ==
[2018-09-23 12:01] LABS: ANION GAP 9 (5-19); BLOOD UREA NITROGEN 17 mg/dL (7-20); CALCIUM 9.8 mg/dL (8.4-10.2); CARBON DIOXIDE 31 mmol/L (22-30); CHLORIDE 102 mmol/L (98-107); GLUCOSE 99 mg/dL (75-110); SODIUM 141.5 mmol/L (137-145)
== END ==
LOC: OD 10:37
PROVIDERS: ATTEND Physician Assistant
DX: I10 Essential (primary) hypertension (principal); Z79.899 Other long term (current) drug therapy
CPT/HCPCS: 36415; 80048

== ENCOUNTER → 2018-12-13 | Outpatient (CLI) | payer MEDICARE, OTHER ==
[2018-12-13 11:29] LABS: ALBUMIN 4.2 g/dL (3.5-5.0); ALKALINE PHOSPHATASE 73 U/L (38-126); ASPARTATE AMINO TRANSFERASE 28 U/L (17-59); BILIRUBIN,DIRECT 0.1 mg/dL (0.0-0.4); BILIRUBIN,TOTAL 0.4 mg/dL (0.2-1.3); CHOLESTEROL 208.68 mg/dL (0-200); TRIGLYCERIDES 290 mg/dL (<150)
[2018-12-13 11:40] LABS: DIRECT LDL 138 mg/dL (<100)
== END ==
LOC: OD 09:52
PROVIDERS: ATTEND Physician Assistant
DX: Z79.899 Other long term (current) drug therapy (principal); E78.2 Mixed hyperlipidemia
CPT/HCPCS: 36415; 80061; 80076

== ENCOUNTER → 2018-12-17 | Outpatient (CLI) | payer MEDICARE, OTHER ==
[2018-12-17 16:46] LABS: HEMATOCRIT 38.6 % (37.9-51.0); HEMOGLOBIN 12.9 g/dL (13.5-17.0); MEAN CORPUSCULAR HEMOGLOBIN 28.9 pg (27.0-33.4); MEAN CORPUSCULAR HGB CONC 33.5 g/dL (32.0-36.0); MEAN CORPUSCULAR VOLUME 87 fl (80-97); PLATELET COUNT 266 10^3/uL (150-450); RED BLOOD COUNT 4.46 10^6/uL (4.35-5.55); RED CELL DISTRIBUTION WIDTH 13.4 % (11.5-14.0); WHITE BLOOD COUNT 8.1 10^3/uL (4.0-10.5)
[2018-12-17 16:54] LABS: INTERNATIONAL RATION (INR) 0.91; PROTHROMBIN TIME 12.2 SEC (11.4-15.4)
[2018-12-17 16:55] LABS: PARTIAL THROMBOPLASTIN TIME 30.7 SEC (23.5-35.8)
[2018-12-17 16:59] LABS: ANION GAP 10 (5-19); BLOOD UREA NITROGEN 25 mg/dL (7-20); CALCIUM 9.9 mg/dL (8.4-10.2); CARBON DIOXIDE 29 mmol/L (22-30); CHLORIDE 99 mmol/L (98-107); GLUCOSE 81 mg/dL (75-110); POTASSIUM 4.4 mmol/L (3.6-5.0)
== END ==
LOC: OD 15:51
PROVIDERS: ATTEND Physician Assistant
DX: Z01.810 Encounter for preprocedural cardiovascular examination (principal); R07.89 Other chest pain; Z79.01 Long term (current) use of anticoagulants
CPT/HCPCS: 36415; 80048; 85027; 85610; 85730

== ENCOUNTER 2019-01-31 07:52 | Day surgery (SDC) | payer MEDICARE, OTHER ==
[2019-01-31] MEDS ORDERED: PROPOFOL INJ 200 MG/20 ML VIAL IV ONE (08:10)
[2019-01-31 10:37] VITALS: BP 108/52
--- NOTE | 2019-01-31 12:50 | Operative Report ---
Operative Report DATE OF SURGERY: 01/31/19 Operative Report: The risks benefits and alternatives of the procedure explained to the patient in detail and informed consent is obtained.A GIF Olympus video scope was inserted into the patient's mouth and hypopharynx, the esophagus is identified intubated and insufflated, the scope was then advanced through the esophagus stomach and duodenum, retroflexion maneuver is done ,the esophagus stomach and first and second portions of the duodenum examined. PREOPERATIVE DIAGNOSIS: Dysphagia POSTOPERATIVE DIAGNOSIS: Ag's esophagus status post radiofrequency ablation. Patient is not able to stop his anti-platelet therapy due to recent stent placement no biopsies were obtained OPERATION: EGD with radiofrequency ablation SURGEON: WILLIAM NICHOLS ANESTHESIA: LMAC TISSUE REMOVED OR ALTERED: As noted above. COMPLICATIONS: None. ESTIMATED BLOOD LOSS: None. INTRAOPERATIVE FINDINGS: As noted above. PROCEDURE: Patient tolerated the procedure well. No immediate postprocedure complications are noted. Patient is discharged in good condition. Discharge date 01/31/2019. Discharge diet: Regular. Discharge activity: Regular. 2 to 3-week follow-up to discuss findings. Patient is instructed to call the office or proceed to the emergency room should there be any further problems or questions.
== END 2019-01-31 10:35 | disposition home or self-care (01) ==
LOC: END 07:52
PROVIDERS: ATTEND Internal Medicine Gastroenterology
DX: K22.70 Barrett's esophagus without dysplasia (principal); Z88.5 Allergy status to narcotic agent; Z87.891 Personal history of nicotine dependence; E11.9 Type 2 diabetes mellitus without complications; I25.2 Old myocardial infarction; I10 Essential (primary) hypertension; I20.9 Angina pectoris, unspecified
CPT/HCPCS: 43270; 00731; J2704; 731

== ENCOUNTER → 2019-10-06 | Outpatient (CLI) | payer MEDICARE, OTHER | LOC: OD 08:55 | PROVIDERS: ATTEND Internal Medicine Pulmonary Disease | DX: J61 Pneumoconiosis due to asbestos and other mineral fibers (principal) | CPT/HCPCS: 36415; 86021; 86225; 86235; 86431 ==

== ENCOUNTER → 2019-10-06 | Outpatient (CLI) | payer MEDICARE, OTHER ==
--- NOTE | 2019-10-06 09:55 | ST Modified Barium Swallow ---
Recommendation - Recommendations Recommendations: Recommend continued follow up with GI, symptoms appear to be related to reflux/Ag's esophagus. Functional oral and pharyngeal phase swallowing skills seen. Medical Diagnoses - Medical Diagnoses Medical Diagnosis Description & ICD-10 Code(s): R13.10, J61 Other Medical Diagnoses/Co-Morbidities: per patient report: TIA 5-6 years ago, cervical spine surgery 3 years ago, reflux, Barretts esophagus, COPD - ICD-10 Tx Diagnosis Coding (1) Dysphagia, unspecified ICD-10 Code(s): R13.10 - DYSPHAGIA, UNSPECIFIED (2) Pneumoconiosis due to asbestos and other mineral fibers ICD-10 Code(s): J61 - PNEUMOCONIOSIS DUE TO ASBESTOS AND OTHER MINERAL FIBERS ST Modified Barium Swallow - General Date: 10/06/19 Referring Physician: Dr. Loyd Risks/Precautions: None Date of Onset: 09/06/13 - approximate onset Reason for Referral: difficulty swallowing - History -: Medical - Patient provided his own medical history: Patient states that he has had swallowing difficulty for 6 years, noticing worsening recently. He reports globus sensation after meals, but not coughing. No recent pneumonia or bronchitis reported. States that he mostly has difficulty with solids. He is also currently avoiding harder foods, however, this is due to having some teeth removed and difficulty with chewing. Medications: patient reports protonix and inhaler, complete med list not available Allergies: per patient report: sulfa, morphine, codeine, statins - Functional Status Prior Functional Status: INDEPENDENT: feeding - independent Current Functional Limitations: feeding - Subjective Patient/caregiver goal(s): safe swallow Cognitive-Linguistic Function: Functional Speech Intelligibility: WNL Current Nutritional Means: PO Current PO diet: Soft Current symptoms: c/o Globus sensation Pain: Patient reports, 0/5 - Objective Assessment: Upright, Left Lateral - Food Trials Used Food trials used: Thin liquids, Pureed, Regular The patient: Was Able to Self Feed - Oral-Motor Skills Dentition: Partial Velo-pharyngeal function: Unremarkable Laryngeal Function: Volitional Swallow, clear voicing - Assessment Oral prep: Normal Labial closure: Adequate Leakage: None Mastication: Lengthy, Adequate Lingual Movement: Normal Oral stage: Normal for this Procedure - Pharyngeal Stage Initiation of Pharyngeal Stage Reflex: Normal - occasional pre swallow pooling in valleculae, WNL Decreased laryngeal elevation: No Reduced Velopharyngeal Closure: no Reduced pressure generation: No reduced tongue-based retraction: No Pre-swallow pooling in valleculae: Mild Pre-Swallow pooling in pyriforms: None Reduced Thyro-Hyoid approximation: No Reduced epiglottic excursion: No Reduced pharyngeal peristalsis/contraction: No Post-swallow residulas vallecular: None Post-Swallow residuals in pyriforms: None Pharyngeal Stage Comments: Patient noted to have epiglottis remain in inverted position after the swallow for up to 1.5 seconds with solids, increased movement with thins. However, this did not impact the movement of the bolus, did not place patient at risk of aspiration. - Fall Risk Assessment Medications/Conditions that increase fall risks include: Antidepressants, sedatives, anti-arrhythmic, diuretic, benzodiazipenes, neuroleptics. BP regulation problems, cardiac problems, balance or gait deficits, neurological problems. Fall Risk Actions Taken: No action needed - independent with assistive device - Behavioral Observations During evaluation process patient: was cooperative, provided medical history - Treatment / Educational Needs: Treatment/Education Needs: Treatment consisted of patient education on the role of the Speech Pathologist. Patient's plan of care and golas were communicated as well as scheduling and attendance policies. Recommendations for initial home program were shared. Patient demonstrated understanding and verbalized agreement. - Impression/Summary Laryngeal Penetration: Yes - trace penetration seen x1 with sequential thin liquid swallows via straw. Tracheal Aspiration: no Patient presents with: Normal swallow at eval Risk of Aspiration: Minimal Evaluation and Findings: All oral and pharyngeal swallowing skills WNL. Patient noted to have sensation of pharyngeal residue when none was present on flouroscopy. This may be due to GI diagnosis. - Recommendations Solid diet recommendations: Mechanical Soft - due to dentition Liquid Diet Modification: Thin Dysphagia therapy with BAGGING SALVAGER: no Reflux Precautions: Taught to Patient Recommended techniques: Fully Upright During Meal, Small Bites and Sips Information, Precautions and Recommendations: Patient (Written), Patient (Verbal) - Time Total Time: 30 - Plan of Care Strategies to optimize patient understanding include:: ongoing assessment of educational needs, implementation of educational strategies, and re-education. - - -: Thank you for the opportunity to work with this patient and his/her family. Should you have any questions about this patient's plan or progress, I can be reached at [phone].
--- NOTE | 2019-10-06 11:20 | RADIOLOGY REPORT (SQ) ---
EXAM DESCRIPTION: CT CHEST WITHOUT IMAGES COMPLETED DATE/TIME: 10/06/2019 8:00 am REASON FOR STUDY: PNEUMOCONIOSIS DUE TO ASBESTOS AND OTHER MINERAL FIBERS (J61) R47.02 DYSPHASIA J6 1 PNEUMOCONIOSIS DUE TO ASBESTOS AND OTHER MINERAL FIBERS COMPARISON: None. TECHNIQUE: CT scan performed of the chest without intravenous contrast. Images reviewed with lung, soft tissue and bone windows. Reconstructed coronal and sagittal MPR images reviewed. All images st ored on PACS. All CT scanners at this facility use dose modulation, iterative reconstruction, and/or weight based d osing when appropriate to reduce radiation dose to as low as reasonably achievable (ALARA). [facility]: Dose Right [facility]: CareDose [facility]: Dose Right [facility]: Teradose 4D [facility]: [employer] RADIATION DOSE: CT Rad equipment meets quality standard of care and radiation dose reduction techniq ues were employed. CTDIvol: 19.1 mGy. DLP: 830 mGy-cm. mGy. LIMITATIONS: No technical limitations. FINDINGS: LUNGS AND PLEURA: Small calcified granuloma left upper lobe. Mild bronchiectasis left low er lobe. No infiltrate or fibrosis. HILAR AND MEDIASTINAL STRUCTURES: Calcified mediastinal nodes. HEART AND VASCULAR STRUCTURES: No aneurysm. No pericardial effusion. UPPER ABDOMEN: No significant findings. Limited exam. THYROID AND OTHER SOFT TISSUES: No masses. No adenopathy. BONES: No significant finding. HARDWARE: None in the chest. OTHER: No other significant findings. IMPRESSION: Old granulomatous disease. No acute findings. TECHNICAL DOCUMENTATION: JOB ID: [id number] Quality ID # [id number]: Final reports with documentation of one or more dose reduction techniques (e.g., Au tomated exposure control, adjustment of the mA and/or kV according to patient size, use of iterative reconstruction technique) 2010 [employer]- All Rights Reserved Reading location - IP/workstation name: [email or web address]
--- NOTE | 2019-10-06 12:45 | RADIOLOGY REPORT (SQ) ---
EXAM DESCRIPTION: COOKIE SWALLOW IMAGES COMPLETED DATE/TIME: 10/06/2019 8:35 am REASON FOR STUDY: DYSPHASIA (R47.02) R47.02 DYSPHASIA J61 PNEUMOCONIOSIS DUE TO ASBESTOS AND OTHER MINERAL FIBERS COMPARISON: None. TECHNIQUE: Videofluoroscopic swallowing examination was performed in conjunction with speech patholo gy. Videofluoroscopic imaging was obtained and reviewed and these are the findings: RADIATION DOSE: Fluoro time 2.34 minutes 1 images saved to PACS. LIMITATIONS: None FINDINGS: The patient was brought into the fluoro room and placed upright on a modified barium swall ow chair. The patient was then given multiple consistencies mixed with barium to swallow under live fluoroscopic video guidance. According to the Speech Pathologist there was a single episode of laryn geal penetration with thin barium. No aspiration identified. All other consistencies were swallowed without incident. Please refer to the speech pathology report for further details. IMPRESSION: SINGLE EPISODE OF LARYNGEAL PENETRATION WITH THIN BARIUM, WITHOUT ASPIRATION. . PLEASE SEE SPEECH PATHOLOGIST REPORT FOR OTHER FINDINGS AND RECOMMENDATIONS. COMMENT: None Quality ID [id number]: Final reports for procedures using fluoroscopy that document radiation exposure missy junaid, or exposure time and number of fluorographic images (if radiation exposure indices are not avail able) TECHNICAL DOCUMENTATION: JOB ID: [id number] 2010 [employer]- All Rights Reserved Reading location - IP/workstation name: [email or web address] [id number]
== END ==
LOC: RAD 07:43
PROVIDERS: ATTEND Internal Medicine Pulmonary Disease
DX: R47.02 Dysphasia (principal); J61 Pneumoconiosis due to asbestos and other mineral fibers
CPT/HCPCS: 71250; 74230